=== PATIENT | female | born 1965 | race Caucasian/White ===

== ENCOUNTER 2022-06-16 11:52 | Outpatient (CLI) | payer BC | END 2022-06-16 11:53 | disposition home or self-care (01) | LOC: CT 11:52 | PROVIDERS: ATTEND Family Medicine | DX: Z00.00 Encounter for general adult medical examination without abnormal findings (principal) | CPT/HCPCS: 76497 ==

== ENCOUNTER 2022-06-24 15:46 | Outpatient (CLI) | payer OTHER | END 2022-06-24 15:47 | disposition home or self-care (01) | LOC: BICCT 15:46 | PROVIDERS: ATTEND Family Medicine | DX: Z13.6 Encounter for screening for cardiovascular disorders (principal) | CPT/HCPCS: 75571 ==